=== PATIENT | female | born 1990 | race Caucasian/White ===

== ENCOUNTER 2023-09-14 15:33 | Emergency (ER) | payer MEDICAID, OTHER ==
[~2023-09-14] VITALS: Ht 162.6 cm; Wt 127.4 kg
[2023-09-14] MEDS ORDERED: AMOX875T4 PO (18:46)
[2023-09-14] MEDS ORDERED: ACET500T58 PO (18:46)
[2023-09-14] MEDS: cefTRIAXone SOD 1,000 MG VL IM ONE (19:00)
[2023-09-14 19:01] VITALS: BP 112/58; PULSE 51; RESP 17; TEMP 98.3; O2SAT 96
== END 2023-09-14 19:07 | disposition home or self-care (01) ==
LOC: ER 15:33
DX: H66.93 Otitis media, unspecified, bilateral (principal)
CPT/HCPCS: 96372; 99283; J0696